=== PATIENT | male | born 1985 ===

== ENCOUNTER 2017-03-11 10:08 | Emergency (ER) | payer BC, MEDICAID ==
[2017-03-11 12:17] VITALS: BP 128/84
[2017-03-11] MEDS ORDERED: methylPREDNISolone 125 MG* 2 ML VIAL IM ONE (13:13)
[2017-03-11] MEDS ORDERED: Ketorolac INJ* 60 MG/2 ML VIAL IM ONE (13:13)
--- NOTE | 2017-03-11 13:13 | UC ---
Dental HPI - HPI Summary HPI Summary: 31 y/o male presents to the urgent care c/o RT upper jaw pain and facial swelling since last night. Pain is 8/10 sharp and throbbing and associated with swelling. Pt states he doesn't have a Dentist. He has a caries and the molar is fracture where he has the swelling in the RT upper gum. Pt denies trismus, fever , sore throat, dizziness, abdominal pain, N/V/D. - History of Current Complaint Chief Complaint: UCDentalProblem Stated Complaint: DENTAL COMPLAINT Time Seen by Provider: 03/11/17 13:03 Hx Obtained From: Patient Onset/Duration: Gradual Onset, Lasting Days - 1 day, Worse Since - this morning Severity: Moderate Pain Intensity: 8 Pain Scale Used: 0-10 Numeric Aggravating Factor(s): Chewing Alleviating Factor(s): OTC Meds Related History: Swelling - Allergies/Home Medications Allergies/Adverse Reactions: Allergies Allergy/AdvReac Type Severity Reaction Status Date / Time Amoxicillin Allergy hives as a Verified 03/11/17 12:10 child Home Medications: Home Medications Acetaminophen [Acetaminophen Extra Stren] 1,000 mg PO ONCE 03/11/17 [History Confirmed 03/11/17] PMH/Surg Hx/FS Hx/Imm Hx Previously Healthy: Yes - Pt denies PMHX - Surgical History Surgical History: None - Family History Known Family History: Positive: None - Pt deneis FMHX - Social History Occupation: Employed Full-time Lives: With Family Alcohol Use: Occasionally Substance Use Type: None Smoking Status (MU): Never Smoked Tobacco Review of Systems Constitutional: Negative Skin: Negative Eyes: Negative ENT: Dental Pain - RT upper jaw pain , toothache and RT cheek swelling Respiratory: Negative Cardiovascular: Negative Gastrointestinal: Negative Genitourinary: Negative Motor: Negative Neurovascular: Negative Musculoskeletal: Negative Neurological: Headache Psychological: Negative Is Patient Immunocompromised?: No All Other Systems Reviewed And Are Negative: Yes Physical Exam Triage Information Reviewed: Yes Vital Signs: Initial Vital Signs Temp 99 F 03/11/17 12:11 Pulse 85 03/11/17 12:11 Resp 14 03/11/17 12:11 BP 128/84 03/11/17 12:11 Pulse Ox 98 03/11/17 12:11 - Additional Comments Vital Signs Reviewed: Yes General: well developed. well nourished male sitting in the examining table w/o any apparent distress Eyes: Positive: Conjunctiva Clear - PERRLA, EOMI, fundi grossly normal ENT: Positive: Normal ENT inspection, Hearing grossly normal, Pharyngeal erythema, TMs normal, Uvula midline. Negative: Tonsillar swelling, Tonsillar exudate, Trismus Dental: Positive: Percussion Tenderness @ - molar 3-4 Multiple Gross Decay/ Caries with missing molar and teeth, Abscess @ - molar 4, Cervical Lymphadenopathy - B/L anterior, Neck: Positive: Supple, Nontender Respiratory: Positive: Chest non-tender, Lungs clear, Normal breath sounds, No respiratory distress Cardiovascular: Positive: RRR, No Murmur, Pulses Normal, Brisk Capillary Refill Abdomen Description: Positive: Nontender, No Organomegaly, Soft. Negative: CVA Tenderness (R), CVA Tenderness (L) Bowel Sounds: Positive: Present Musculoskeletal: Positive: Strength Intact, ROM Intact, No Edema Neurological Exam: Normal Psychological Exam: Normal Skin Exam: Normal Dental Complaint Course/Dx - Course Course Of Treatment: 31 y/o male presents to the urgent care c/o RT upper jaw pain and facial swelling since last night. Pain is 8/10 sharp and throbbing and associated with swelling. Pt states he doesn't have a Dentist. He has a caries and the molar is fracture where he has the swelling in the RT upper gum. Pt denies trismus, fever, sore throat, dizziness, abdominal pain, N/V/D. Hx obtained. Pt with dental abscess aroun molar #4 on RT upper jaw and mild facial swelling on examination. PT PCN allegic. Pt given viscous Lidocaine, Solumedrol IM inj and Toradol IM inj at the clinic to alleviate symptoms. Pt tolerated well IM injs. Pt Rx Clyndamycin, Prednisone taper dose, and Naproxen PO for pain. Pt strongly advised to f/u with Dentist as soon as possible further evaluation and treatment. Pt understood and agreed with plan of care. Left the clinic ambulating. - Differential Dx/Diagnosis Differential Diagnosis/Dx: Dental Abscess, Dental Caries, Fractured Tooth, Peridontic Disease Provider Diagnoses: 1- Rt upper dental abscess arroun molar #4. 2- Molar 4 and 3 fractured. 3- Multiple caries Discharge - Discharge Plan Condition: Stable Disposition: HOME Prescriptions: Clindamycin Cap(NF) [Clindamycin Cap 300 mg Cap(NF)] 300 mg PO Q6H #40 cap Naproxen [Naproxen 500 mg] 500 mg PO Q8H PRN #30 tab PRN Reason: Pain predniSONE TAB* [Deltasone TAB*] 20 mg PO DAILY #11 tab Patient Education Materials: Dental Abscess (ED) Referrals: Jade Licona MD [Primary Care Provider] - 2 Days Additional Instructions: 1-Please take full course of antibiotic to avoid resistance. Take Prednisone PO tabs as directed starting tomorrow to decrease swelling. 2- Take Naproxen as instructed after meals to alleviate pain and swelling. 3- F/u with your Dentist or Dental List provided as soon as possible for further treatment. 4- If symptoms do not improve or worsen please return to the urgent care or f/u with your PCP for further evaluation and treatment
[2017-03-11] MEDS ORDERED: Lidocaine 2% VISCOUS* 15 ML UDC SWISH SPIT ONE (13:14)
== END 2017-03-11 13:40 | disposition home or self-care (01) ==
LOC: UCEAST 10:08
DX: K04.7 Periapical abscess without sinus (principal); K02.9 Dental caries, unspecified; Z88.3 Allergy status to other anti-infective agents
CPT/HCPCS: 96372; 99202; G0463; J1885; J2930